=== PATIENT | male | born 1970 | race Caucasian/White ===

== ENCOUNTER 2020-08-14 06:18 | Day surgery (SDC) | payer BC ==
[2020-08-14] MEDS ORDERED: Propofol 200 MG/20 ML SDV IV ONE (06:19)
[2020-08-14] MEDS ORDERED: Midazolam 1 MG/ML 2 ML SDV IV ONE (06:19)
[2020-08-14] MEDS ORDERED: Lactated Ringers 1,000 ML IV SCH (06:45)
[2020-08-14] MEDS ORDERED: Sodium Chloride 0.9% 10 ML Syringe FLUSH PRN (06:45)
--- NOTE | 2020-08-14 08:32 | PCM.OPNOTE ---
- General Post-Op/Procedure Note Date of Surgery/Procedure: 08/14/20 Operative Procedure(s): c scope with hot loop snare biopsy Findings: rectal polyp Pre Op Diagnosis: screening Post-Op Diagnosis: rectal polyp Anesthesia Technique: MAC Primary Surgeon: Pb Hawley Anesthesia Provider: Tonie Burgess Pathology: rectal polyp Complications: None Condition: Good Free Text/Narrative:: see dictation [id number]
--- NOTE | 2020-08-14 09:29 | PROC ---
DATE OF PROCEDURE: 08/14/2020 PROCEDURE PERFORMED: Colonoscopy with hot loop snare biopsy. PREOPERATIVE DIAGNOSIS: Need for colon cancer screening. POSTOPERATIVE DIAGNOSIS: Rectal polyp. INDICATIONS FOR PROCEDURE: This is a 50-year-old white male who presents for screening colonoscopy. He was offered and accepted same. DESCRIPTION OF OPERATION: After an excellent IV sedation was administered, digital rectal exam was performed. No marked abnormality was noted. Flexible colonoscope was inserted and advanced to the cecum. Prep was excellent. After identifying the cecum by its usual anatomic markings, the scope was slowly withdrawn and the colonic mucosa was carefully evaluated. The following findings were noted: Ascending colon, a single diverticulum noted. This was very small, approximately 5 mm in size. Transverse colon, unremarkable. Descending colon, unremarkable. Rectum, a small polyp biopsied with a hot loop snare as it was pedunculated and submitted in a container. The patient tolerated the procedure well, was taken to recovery room. /[id number] SARAH/MAU
== END 2020-08-14 09:30 | disposition home or self-care (01) ==
LOC: FB.SDS 06:18
PROVIDERS: ATTEND Surgery
DX: Z12.11 Encounter for screening for malignant neoplasm of colon (principal); K62.1 Rectal polyp; F41.9 Anxiety disorder, unspecified; G47.33 Obstructive sleep apnea (adult) (pediatric); E66.9 Obesity, unspecified; Z68.35 Body mass index [BMI] 35.0-35.9, adult
CPT/HCPCS: 00812-QZ; J2250; J2704; J7120